=== PATIENT | female | born 2005 | race Caucasian/White ===

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

== ENCOUNTER 2023-10-10 21:49 | Emergency (ER) | payer SELFPAY ==
[2023-10-10 21:54] VITALS: BP 105/71; PULSE 87; RESP 18; TEMP 98; BMI 17.7
== END 2023-10-10 23:31 | disposition home or self-care (01) ==
LOC: JER 21:49
DX: S62.635A Displaced fracture of distal phalanx of left ring finger, initial encounter for closed fracture (principal); W20.8XXA Other cause of strike by thrown, projected or falling object, initial encounter
CPT/HCPCS: 73140-TC-LT-FY; 99283-25